=== PATIENT | female | born 1980 | race Caucasian/White ===

== ENCOUNTER 2023-12-22 08:07 | Emergency (ER) | payer BC ==
[~2023-12-22] VITALS: Ht 162.6 cm; Wt 49.9 kg
[2023-12-22] MEDS ORDERED: KETOROLAC TROMETHAMINE 30 MG VIAL IM ONE (09:45)
== END 2023-12-22 10:23 | disposition home or self-care (01) ==
LOC: ER 08:08
DX: S63.592A Other specified sprain of left wrist, initial encounter (principal); W18.39XA Other fall on same level, initial encounter; Y93.89 Activity, other specified; Y92.520 Airport as the place of occurrence of the external cause; Z88.2 Allergy status to sulfonamides